=== PATIENT | male | born 1975 | race Asian ===

== ENCOUNTER 2016-05-23 10:09 | Emergency (ER) | payer BC, OTHER ==
[2016-05-23 10:25] VITALS: BP 143/77; PULSE 74; TEMP 97.4; BMI 27.4
[2016-05-23] MEDS ORDERED: OXYCODONE/APAP 5/325MG COMBO TABLET PO ONE (11:35)
[2016-05-23] MEDS ORDERED: OXYCODONE/APAP 5/325MG COMBO TABLET ONE (11:38)
--- NOTE | 2016-05-23 11:59 | PDOC ---
History of Present Illness - General Chief Complaint: Back Pain Stated Complaint: LOWER BACK PAIN Time Seen by Provider: 05/23/16 11:19 History Source: Patient Exam Limitations: No Limitations - History of Present Illness Initial Comments: 05/23/16 11:54 CC lower back pain post lifting boxes at work last week; Occurred: reports: last week Severity: reports: moderate Pain Location: reports: back Method of Injury: No: assault, direct blow, fall Associated Symptoms (Fall): denies symptoms Past History - Past Medical History Allergies/Adverse Reactions: Allergies Allergy/AdvReac Type Severity Reaction Status Date / Time codeine Allergy Intermediate Rash Verified 05/23/16 10:21 Home Medications: Ambulatory Orders Lidocaine 5% Patch [Lidoderm -] 1 patch TP DAILY #7 patch 05/23/16 Cardiac Disorders: (STENT PLACEMENT) Hypercholesterolemia: Yes - Surgical History Cardiac Surgery: Yes (STENT PLACEMENT) - Psycho/Social/Smoking Cessation Hx Suicidal Ideation: No Smoking History: Former smoker Have you smoked in the past 12 months: No Information on smoking cessation initiated: No Review of Systems - Review of Systems Constitutional: No: Chills, Fever, Malaise HEENTM: No: Nose Congestion Respiratory: No: Symptoms reported, Cough Cardiac (ROS): No: Symptoms Reported ABD/GI: No: Symptoms Reported, Constipated, Diarrhea, Nausea, Rectal Bleeding, Vomiting, Tarry Stools : No: Symptoms Reported, Burning, Dysuria, Incontinence Musculoskeletal: Yes: Back Pain. No: Neck Pain, Joint Stiffness Neurological: No: Numbness, Paresthesia, Weakness *Physical Exam - Vital Signs Last Vital Signs Temp Pulse Resp BP Pulse Ox 97.4 F L 74 16 143/77 98 05/23/16 10:21 05/23/16 10:21 05/23/16 10:21 05/23/16 10:21 05/23/16 10:21 - Physical Exam General Appearance: Yes: Appropriately Dressed. No: Apparent Distress HEENT: positive: TMs Normal, Pharynx Normal Neck: positive: Supple. negative: Tender, Rigid, Lymphadenopathy (R), Lymphadenopathy (L) Respiratory/Chest: positive: Lungs Clear. negative: Chest Tender, Labored Respiration Cardiovascular: positive: Regular Rhythm, Regular Rate. negative: Murmur Gastrointestinal/Abdominal: positive: Organomegaly. negative: Normal Bowel Sounds, Tender Male Genitalia: positive: normal genitalia Rectal Exam: negative: heme negative stool Musculoskeletal: positive: Other (tender to area of L3-L4 bilat; very stiff) Integumentary: positive: Normal Color, Dry, Warm Neurologic: positive: Fully Oriented, Alert, Normal Mood/Affect, Normal Response , Motor Strength 5/5, Other (SLRs= no root pain; no foot drop). negative: Numbness, Sensory Deficit ED Treatment Course - Medications Given in the ED: ED Medications Discontinued Medications Generic Name Dose Route Start Last Admin Trade Name Freq PRN Reason Stop Dose Admin Oxycodone/Acetaminophen 1 combo 05/23/16 11:35 05/23/16 11:39 Percocet 5/325 - PO 05/23/16 11:36 1 combo ONCE ONE Administration Medical Decision Making - Medical Decision Making 05/23/16 11:58 better post percocet; unable to give toradol due to on plavix and asa *DC/Admit/Observation/Transfer Diagnosis at time of Disposition: Back pain at L4-L5 level - Discharge Dispostion Disposition: HOME Condition at time of disposition: Stable Admit: No - Referrals Referrals: Juanpablo Cardenas MD [Primary Care Provider] - - Patient Instructions Additional Instructions: please follow up with Dr Alcantar this week - Post Discharge Activity Work/School Note: Back to Work
== END 2016-05-23 12:12 | disposition home or self-care (01) ==
LOC: JERFT 10:09
DX: M54.5 Low back pain (principal); X50.0XXA Overexertion from strenuous movement or load, initial encounter; X50.9XXA Other and unspecified overexertion or strenuous movements or postures, initial encounter; Y93.89 Activity, other specified; Y92.128 Other place in nursing home as the place of occurrence of the external cause; Y99.0 Civilian activity done for income or pay; Z95.5 Presence of coronary angioplasty implant and graft; E78.00 Pure hypercholesterolemia, unspecified
CPT/HCPCS: 99281-25